=== PATIENT | male | born 1955 | race Caucasian/White ===

== ENCOUNTER → 2018-07-03 | Outpatient (CLI) | payer OTHER ==
[~2018-07-03] MED LIST: REGADENOSON 0.4 MG/5 ML PF SYG IVP SCH
== END | disposition home or self-care (01) ==
LOC: SHCH 07:52
PROVIDERS: ATTEND Internal Medicine Cardiovascular Disease
DX: I25.10 Atherosclerotic heart disease of native coronary artery without angina pectoris (principal); I10 Essential (primary) hypertension; I25.2 Old myocardial infarction
CPT/HCPCS: 78452; 93017; 96374; A9500 ×2; J2785

== ENCOUNTER → 2018-07-08 | Outpatient (CLI) | payer OTHER | END | disposition home or self-care (01) | LOC: OIH 13:36 | PROVIDERS: ATTEND Internal Medicine | DX: J90 Pleural effusion, not elsewhere classified (principal); I11.0 Hypertensive heart disease with heart failure; I50.9 Heart failure, unspecified; J98.11 Atelectasis | CPT/HCPCS: 71046 ==

== ENCOUNTER → 2018-07-25 | Outpatient (CLI) | payer OTHER | END | disposition home or self-care (01) | LOC: SHCH 10:00 | PROVIDERS: ATTEND Internal Medicine Cardiovascular Disease | DX: I35.8 Other nonrheumatic aortic valve disorders (principal); I47.2 Ventricular tachycardia; I25.5 Ischemic cardiomyopathy | CPT/HCPCS: 93306 ==

== ENCOUNTER 2018-08-27 08:39 | Observation (INO) | payer OTHER ==
[2018-08-25 08:56] VITALS: BP 148/78
[2018-08-25 09:02] LABS: BASOPHILS % (AUTO) 0.4 % (0.0-5.0); EOSINOPHILS % (AUTO) 3.7 % (0.0-8.0); HEMATOCRIT 40.9 % (42-54); MEAN CORPUSCULAR HEMOGLOBIN 30.2 pg (27.0-33.0); MEAN CORPUSCULAR HGB CONC 33.4 g/dL (32.0-36.0); MEAN CORPUSCULAR VOLUME 90.5 fL (79-99); MONOCYTES % (AUTO) 7.6 % (3.0-13.0); NEUTROPHILS % (AUTO) 60.3 % (40.0-77.0); NUCLEATED RED BLOOD CELLS 0.1 % (0.0-0.19); PLATELET COUNT (AUTO) 172 K/uL (130-400); RED BLOOD CELL COUNT(AUTO) 4.52 MIL/uL (4.50-6.20); RED CELL DISTRIBUTION WIDTH 14.3 % (11.0-15.5); WHITE BLOOD COUNT (AUTO) 6.8 K/uL (4.8-10.8)
[2018-08-25 09:06] LABS: CREATININE 1.3 mg/dL (0.5-1.5); POTASSIUM 4.7 mmol/L (3.5-5.1)
[2018-08-25 09:28] LABS: INR 1.11 (0.85-1.15); PARTIAL THROMBOPLASTIN TIME 26.5 SEC (26.3-35.5); PROTHROMBIN TIME 11.6 SEC (9.6-11.6)
[~2018-08-27] VITALS: Ht 188 cm; Wt 115.7 kg
[2018-08-27] VITALS (8 sets, daily range): BP systolic 131–159; BP diastolic 72–89
[~2018-08-27 08:39] MED LIST changes: +AEC81 PO; +ALBU90AE IH; +ATOR40TA71 PO; +CARV25TA PO; +CEFAZOLIN SODIUM 1 GM VIAL IVP SCH; +CLOP75TA14 PO; +FURO40TA5 PO; +INSU3INS3 SQ; +LOSA50TA25 PO; +METF-444 PO; +POTA-79 PO; -REGADENOSON 0.4 MG/5 ML PF SYG IVP SCH; +SODIUM CHLORIDE 0.9% 1000ML 1,000 ML IV SCH
[2018-08-27] MEDS ORDERED: BUPIVACAINE/PF 0.25% 30ML VIAL IJ ONE (13:50)
[2018-08-27] MEDS ORDERED: IODIXANOL 320 MG/ML 100 ML VIAL ONE (13:50)
[2018-08-27] MEDS ORDERED: LIDOCAINE HCL 1% MDV 50ML VIAL ONE (13:50)
[2018-08-27] MEDS ORDERED: MIDAZOLAM HCL 1 MG/ML 2ML VIAL ONE ×2 (14:11→14:49)
[2018-08-27] MEDS ORDERED: VANCOMYCIN 1GM+NS 250ML 250 ML IV ONE ×2 (14:11→14:12)
[2018-08-27] MEDS ORDERED: MEPERIDINE-PF 25 MG/ML SYG ONE ×2 (14:11→14:49)
[2018-08-27] MEDS ORDERED: OCTYL 2-CYANOACRYLATE 1 EACH TP ONE ×2 (16:02→16:04)
[2018-08-27] MEDS ORDERED: ACETAMINOPHEN 325 MG TAB PO PRN ×2 (16:15)
[2018-08-27] MEDS ORDERED: ONDANSETRON HCL 4 MG/2 ML VIAL IV PRN (16:15)
[2018-08-27] MEDS ORDERED: ACETAMINOPHEN-CODEINE 300/30MG TAB PO PRN (16:15)
[2018-08-27] MEDS: INSULIN HUMULIN R 100 UNIT/ML 3ML SQ SCH ×2 (16:30→21:00)
[2018-08-27] MEDS: METFORMIN HCL 500 MG TABLET PO SCH (17:39)
[2018-08-27] MEDS ORDERED: ALBUTEROL SULFATE 0.083% 2.5 MG/3 ML INH IH PRN (17:45)
[2018-08-27] MEDS: ACETAMINOPHEN-CODEINE 300/30MG TAB PO PRN (19:59)
[2018-08-27] MEDS ORDERED: LOSARTAN 50 MG TABLET PO SCH (21:00)
[2018-08-27] MEDS ORDERED: ATORVASTATIN CALCIUM 40 MG TABLET PO SCH (21:00)
[2018-08-27] MEDS: CARVEDILOL 25 MG TABLET PO SCH (21:13)
[2018-08-28 00:06] VITALS: BP 131/73
[2018-08-28] MEDS: ACETAMINOPHEN-CODEINE 300/30MG TAB PO PRN (01:58)
[2018-08-28] MEDS ORDERED: VANCOMYCIN 1GM+NS 250ML 250 ML IV SCH (02:00)
[2018-08-28 04:27] VITALS: BP 111/63
[2018-08-28] MEDS: INSULIN HUMULIN R 100 UNIT/ML 3ML SQ SCH (06:55)
[2018-08-28 07:41] VITALS: BP 125/69
[2018-08-28 07:57] VITALS: BP 125/69
[2018-08-28] MEDS: METFORMIN HCL 500 MG TABLET PO SCH (07:57)
[2018-08-28] MEDS: CARVEDILOL 25 MG TABLET PO SCH (07:57)
[2018-08-28] MEDS ORDERED: INSULIN GLARGINE 100 UNITS/ML 10 ML VIAL SQ SCH (09:00)
[2018-08-28] MEDS ORDERED: FUROSEMIDE 40 MG TABLET PO SCH (09:00)
[2018-08-28] MEDS ORDERED: POTASSIUM CHLORIDE 20 MEQ ERTAB PO SCH (09:00)
[2018-08-28] MEDS ORDERED: ASPIRIN 81 MG EC TAB PO SCH (09:00)
[2018-08-28] MEDS ORDERED: CLOPIDOGREL BISULFATE 75 MG TAB PO SCH (09:00)
== END 2018-08-28 11:40 | disposition home or self-care (01) ==
LOC: DAH 08:39 → DAHIP 08:40 → DAH 08:40 → 2AH 17:06
PROVIDERS: ADMIT Internal Medicine Cardiovascular Disease; ATTEND Internal Medicine Cardiovascular Disease
DX: I25.5 Ischemic cardiomyopathy (principal); I44.7 Left bundle-branch block, unspecified; I87.2 Venous insufficiency (chronic) (peripheral); I25.10 Atherosclerotic heart disease of native coronary artery without angina pectoris; N18.3 Chronic kidney disease, stage 3 (moderate); I34.0 Nonrheumatic mitral (valve) insufficiency; Z95.5 Presence of coronary angioplasty implant and graft; Z79.899 Other long term (current) drug therapy; I50.42 Chronic combined systolic (congestive) and diastolic (congestive) heart failure; Z87.891 Personal history of nicotine dependence
CPT/HCPCS: 33225; 33249; 36415; 71046; 80048; 82948 ×5; 85025; 85610; 85730; 93005; 94664; 96365; 96366; 96372; A4606; C1769 ×3; C1882; C1894; C1895 ×2; C1900; G0378 ×27; J2175 ×2; J2250 ×2; J3370 ×3; J3490 ×2; J7030; Q9967; 99156; 99157

== ENCOUNTER → 2020-09-26 | Outpatient (CLI) | payer OTHER ==
[~2020-09-26] MED LIST changes: -CEFAZOLIN SODIUM 1 GM VIAL IVP SCH; -LOSA50TA25 PO; +LOSA50TA64 PO; -SODIUM CHLORIDE 0.9% 1000ML 1,000 ML IV SCH
== END | disposition home or self-care (01) ==
LOC: SHCH 09:06
PROVIDERS: ATTEND Internal Medicine Cardiovascular Disease
DX: I25.10 Atherosclerotic heart disease of native coronary artery without angina pectoris (principal); R01.1 Cardiac murmur, unspecified
CPT/HCPCS: 93880

== ENCOUNTER → 2020-09-28 | Outpatient (CLI) | payer OTHER | END | disposition home or self-care (01) | LOC: SHCH 09:10 | PROVIDERS: ATTEND Internal Medicine Cardiovascular Disease | DX: I25.10 Atherosclerotic heart disease of native coronary artery without angina pectoris (principal) | CPT/HCPCS: 93306; 93356 ==